=== PATIENT | male | born 1990 | race Caucasian/White ===

== ENCOUNTER 2023-02-10 16:02 | Emergency (ER) | payer BC, SELFPAY ==
[2023-02-10 16:17] VITALS: BP 159/82; PULSE 69; RESP 16; TEMP 37.1; O2SAT 100; BMI 42.2
--- NOTE | 2023-02-10 16:28 | PC.NURSE ---
Dr. Restrepo at [facility] for pt eval
--- NOTE | 2023-02-10 16:30 | XR_ITS ---
PROCEDURE INFORMATION: Exam: XR Chest Exam date and time: 02/10/2023 4:41 PM Age: 33 years old Clinical indication: Chest wall pain; Additional info: Left-sided back pain TECHNIQUE: Imaging protocol: Radiologic exam of the chest. Views: 2 views. COMPARISON: No relevant prior studies available. FINDINGS: Lungs: Lung volumes are mildly diminished. The lungs appear clear. No focal areas of consolidation. Pleural spaces: No pleural effusions. Negative for pneumothorax. Heart/Mediastinum: Cardiac silhouette and pulmonary vasculature are within range of normal. Bones/joints: There is no evidence of acute fracture. The thoracic spine demonstrates mild degenerative changes at multiple levels. IMPRESSION: Negative for an acute cardiopulmonary abnormality. Mildly diminished lung volumes.
--- NOTE | 2023-02-10 16:31 | [facility].EDGENADL ---
Discharge Plan Disposition Patient Disposition: Home, Self-Care Chief Complaint: PAIN Prescriptions Prescriptions: No Action omeprazole 20 mg capsule,delayed release(DR/EC) 20 mg PO DAILY amoxicillin-pot clavulanate 875-125 mg tablet 1 tab PO BID 7 Days Qty: 14 0RF methylprednisolone 4 mg tablets,dose pack See Rx Instructions PO PER PKG DIR Qty: 21 0RF Rx Instructions: PO PER PKG DIR Referrals Follow up/Referrals: Bryson Lama MD [Primary Care Provider] - See instructions Activity Restrictions/Add. Instructions Additional Instructions/Restrictions: Follow-up with your primary care doctor in about 2 to 3 days. Return to the emergency department immediately if you feel worse in any way. Your pain is most likely from a musculoskeletal source. Your labs today were normal. There is no evidence of heart attack. You can take [id number] Tylenol and/or Motrin for your pain. Clinical Impressions Clinical Impression: Left shoulder strain Instructions Patient Instructions: DI for Acute Pain -- Adult Discharge ED Provider: Vane Restrepo Adult HPI General Chief complaint: PAIN Stated complaint: spot in chest hurts, left shoulder Time Seen by Provider: 02/10/23 16:26 Mode of Arrival: Ambulatory Source of Information: Patient Limitations: No Limitations Description of Symptoms (Recalled from ER Triage Doc. by RN): Presents via POV d/t left shoulder blade pain radiating down LUE for the past 2 days. Midsternal chest tenderness upon palpation for the past few weeks with recent left chest tenderness. Denies difficulty breathing. Denies trauma. History of Present Illness HPI narrative: The patient presents to the emergency department complaining of left shoulder pain that is worse with movement. It radiates to the elbow. It has been ongoing for approximately 1 day. It is constant. It has improved with some stretching exercises. The patient also complains of some left-sided chest wall pain that began about a week or 2 ago. It is reproducible with palpation. It is not pleuritic in nature. It is not exertional either. Related Data Home Medications Medication Instructions Recorded Confirmed omeprazole 20 mg capsule,delayed 20 mg PO DAILY 02/08/22 10/18/22 release Previous Rx's Medication Instructions Recorded amoxicillin 875 mg-potassium 1 tab PO BID 7 days #14 tabs 10/18/22 clavulanate 125 mg tablet methylprednisolone 4 mg tablets in See Rx Instructions PO PER PKG DIR 10/18/22 a dose pack #21 tabs Allergies Allergy/AdvReac Type Severity Reaction Status Date / Time No Known Allergies Allergy Verified 10/18/22 11:18 [facility] Disclaimer: The information contained in this section may have been updated after the patient was seen, as this information can be updated by other users. Social History Smoking Status: Never smoker alcohol intake: current substance use type: denies use current occupational status: employed Travel in the last 8 weeks: None household members: spouse and family housing: house ROS Obtained: Yes All systems reviewed & no additional complaints except as documented Physical Exam General General appearance: alert Head Head exam: atraumatic Eye Eye exam: Present normal appearance; Absent scleral icterus or jaundice ENT ENT exam: Present normal exam Neck Neck exam: Present normal inspection and full ROM; Absent tenderness or meningismus Chest Chest inspection: Present normal inspection, symmetric chest wall rise and tenderness (There is reproducible tenderness on the left anterior chest wall. It reproduces the patient's chest pain for which she came to the emergency department.) Respiratory Respiratory exam: Present normal lung sounds bilaterally; Absent respiratory distress or accessory muscle use Cardiovascular Cardiovascular exam: Present regular rate, normal rhythm and normal heart sounds Abdominal Exam Abdo
--- NOTE | 2023-02-10 16:34 | ECG_ITS ---
APPROVED REPORT Exam: Resting ECG HR:70 bpm ECG Measurements Heart Rate 70 AXES WI 159 P 26 QRSd 121 QRS 59 QT 387 T -5 QTc 408 Conclusion SINUS RHYTHM LEFT VENTRICULAR HYPERTROPHY Isolated Q in iii ABNORMAL ECG UNCONFIRMED REPORT Electronically signed by : Evens Rdz MD 02/11/2023 15:41:20
--- NOTE | 2023-02-10 16:47 | PC.NURSE ---
Pt updated on plan of care.
[2023-02-10 16:56] LABS: Chloride 102 mmol/L (98-107)
[2023-02-10 16:57] LABS: Basophils # 0.1 K/mm3 (0-0.2); Basophils % 0.7 % (0.1-2.0); Eosinophils # 0.3 K/mm3 (0.0-0.4); Eosinophils % 3.3 % (0.1-12.0); Hematocrit 46.3 % (42.0-52.0); Hemoglobin 15.4 g/dL (14.1-18.0); Lymphocytes # 3.4 K/mm3 (0.7-4.5); Lymphocytes % 38.3 % (10-50); Mean Corpuscular HGB Conc 33.2 g/dL (31.8-35.4); Mean Corpuscular Hemoglobin 30.3 pg (27.0-31.2); Mean Corpuscular Volume 91.4 fl (80-94); Mean Platelet Volume 7.3 fl (7.4-10.4); Monocytes # 0.6 K/mm3 (0.1-1.0); Neutrophils # 4.5 K/mm3 (1.8-7.8); Neutrophils % 50.7 % (37.0-80.0); Platelet Count 263 K/mm3 (142-424); Potassium 3.7 mmoL/L (3.5-5.1); Red Blood Count 5.07 M/mm3 (4.60-6.20); Red Cell Distribution Width 13.4 % (11.5-17.5); Sodium 139 mmol/L (136-145); White Blood Count 8.8 K/mm3 (4.8-10.8)
[2023-02-10 17:00] LABS: Anion Gap 10.7 mEq/L (5-15); Blood Urea Nitrogen 18 mg/dl (9-20); Calcium 8.5 mg/dl (8.4-10.2); Carbon Dioxide 30 mmol/L (22.0-30.0); Creatinine Clearance Estimated 119 mL/min (50-200); Estimated Glomerular Filt Rate 86 ml/min (>60); GFR (African American) 104 ML/MIN (>60); Glucose 101 mg/dl (74-100)
[2023-02-10 17:20] LABS: Troponin I < 0.01 ng/ml (0.00-0.034)
[2023-02-10 17:22] VITALS: BP 159/92; PULSE 79; O2SAT 98
--- NOTE | 2023-02-10 17:23 | PC.NURSE ---
rounded on patient and hooked patient back up to monitor. patient reports no needs at this time and is aware that we are waiting on results. call button within reach and at pts [facility]
[2023-02-10 17:29] VITALS: BP 159/92; PULSE 81; RESP 16; TEMP 36.7; O2SAT 98
== END 2023-02-10 17:32 | disposition home or self-care (01) ==
PROVIDERS: Emergency Provider Emergency Medicine; PCP Family Medicine
DX: R07.89 Other chest pain (principal); S46.912A Strain of unspecified muscle, fascia and tendon at shoulder and upper arm level, left arm, initial encounter; X58.XXXA Exposure to other specified factors, initial encounter
CPT/HCPCS: 71046; 80048; 84484; 85025; 93005; 99285

== ENCOUNTER → 2023-03-21 11:09 | Outpatient (POV) | payer BC, SELFPAY | PROVIDERS: Visit Provider Dermatology | DX: Z00.00 Encounter for general adult medical examination without abnormal findings (principal) ==

== ENCOUNTER → 2025-01-15 06:26 | Outpatient (CLI) | payer BC, SELFPAY | LOC: SL 06:26 | PROVIDERS: PCP Family Medicine; Visit Provider Family Medicine | DX: R06.83 Snoring (principal); E66.01 Morbid (severe) obesity due to excess calories; R53.83 Other fatigue | CPT/HCPCS: G0399 ==